=== PATIENT | female | born 1930 | race American Indian/Alaskan Native ===

== ENCOUNTER 2018-12-25 03:00 | Inpatient (IN) | payer MEDICARE ==
[2018-12-25 08:37] LABS: BUN/Creatinine Ratio 11; Blood Urea Nitrogen 9 mg/dL (7-17); Calcium 8.8 mg/dL (8.4-10.2); Hemolysis Index 28; LDL Cholesterol,Direct 68 mg/dL (50-130)
[2018-12-25 09:09] LABS: Chol/HDL Ratio 3.36 %; HDL Cholesterol 33 mg/dL (40-59)
[2018-12-25] MEDS: LASIX PO SCH (09:49)
[2018-12-25] MEDS: COLACE PO SCH ×2 (09:49→21:05)
[2018-12-25] MEDS: CLARITIN PO SCH (09:49)
[2018-12-25] MEDS: LEXAPRO PO SCH (10:04)
--- NOTE | 2018-12-25 11:40 | History and Physical Report ---
GP History & Physical - History of Present Illness Date of admission: 12/25/18 Date of Examination: 12/25/18 Reason for Admission: Danger to others, Impaired reality testing, Psychopathology interference, Unable to care for self Chief Complaint: I don't know why I am here History of Present Illness: The patient is an 88-year-old female with past medical history significant for Dementia, HLD, HTN, recurrent falls with multiple fractures including thoracic vertebra wedge compression fracture and most recently a right bi-condylar fracture of the right Tibia and right humerus. She is a Resident at the [facility] from where she was transferred to the [facility] due to her aggressive behaviors, paranoia, hallucinations and refusing care. Patient seen in the dayroom this morning. She is alert, calm and pleasant. She does not know why she is here. She reports that her mood is good, appetite and sleep are poor. She denies suicidal or homicidal thoughts. She endorses auditory hallucinations. She is paranoid - she believes that her nieces are plotting to kill her. She scored 23/28 in MMSE; her right hand is in cast, hence , she is not able to write or draw. She missed all orientation questions. Legal Status: Involuntary Patient Problems: Current Active Problems Alzheimer's dementia, late onset, with behavioral disturbance (Acute) Delirium due to medical condition with behavioral disturbance (Acute) Reaction to Hospitalization: Opposed Substance History - Substance History Drug Use: none Hx Tobacco Use: No Alcohol Use: No Past psychiatric history - Past Medical History Past Medical History: hypertension, hyperlipidemia, other (Recurrent Falls) Past Surgical History: Other (thoracic vertebra wedge compression fracture right bicondylar fracture of the right Tibia and right humerus ) - Social History Social history: , other (Retired, Lives in a Residential.) Review of Systems All systems: negative Constitutional: poor appetite Musculoskeletal: frequent falls, fractures Psychiatric: memory loss, insomnia, hallucinations, paranoia Results - Results Labs/Vitals: Laboratory Last Values Sodium 137 mmol/L (137-145) 12/25/18 07:38 Potassium 3.5 mmol/L (3.6-5.0) L 12/25/18 07:38 Chloride 97.5 mmol/L (98-107) L 12/25/18 07:38 Carbon Dioxide 27 mmol/L (22-30) 12/25/18 07:38 16 mmol/L 12/25/18 07:38 BUN 9 mg/dL (7-17) 12/25/18 07:38 0.8 mg/dL (0.7-1.2) 12/25/18 07:38 Estimated GFR > 60 ml/min 12/25/18 07:38 11 % 12/25/18 07:38 Glucose 92 mg/dL (65-100) 12/25/18 07:38 6.1 % (4-6) H 12/25/18 07:38 Calcium 8.8 mg/dL (8.4-10.2) 12/25/18 07:38 Triglycerides 97 mg/dL (2-149) 12/25/18 07:38 Cholesterol 111 mg/dL (50-199) 12/25/18 07:38 68 mg/dL (50-130) 12/25/18 07:38 33 mg/dL (40-59) L 12/25/18 07:38 3.36 % 12/25/18 07:38 TSH 0.924 mlU/mL (0.270-4.200) 12/25/18 07:38 RPR Nonreactive (Nonreactive) 12/25/18 07:38 Last Vital Signs Temp 98.3 F 12/25/18 06:19 Pulse 79 12/25/18 06:19 Resp 18 12/25/18 06:19 BP 124/69 12/25/18 06:19 Pulse Ox 93 12/25/18 06:19 Physical Examination - Constitutional Vitals: Vital Signs Temp Pulse Resp BP Pulse Ox 98.3 F 79 18 124/69 93 12/25/18 06:19 12/25/18 06:19 12/25/18 06:19 12/25/18 06:19 12/25/18 06:19 Temperature -Last 24 Hours Temperature 98.3 F General appearance: Present: no acute distress, well-nourished - EENT Eyes: Present: PERRL, EOM intact ENT: hearing intact, clear oral mucosa - Neck Neck: Present: supple, normal ROM - Respiratory Respiratory effort: normal - Psychiatric Psychiatric: appropriate mood/affect, cooperative Mental Status Exam - Vital signs Last Vital Signs Temp 98.3 F 12/25/18 06:19 Pulse 79 12/25/18 06:19 Resp 18 12/25/18 06:19 BP 124/69 12/25/18 06:19 Pulse Ox 93 12/25/18 06:19 - Exam Orientation: person Affect: normal Mood: appropriate, calm, congruent with affect Thought content: delusions, paranoia Thought Process: Disorganized Perceptions: auditory, hallucinations Speech: normal rate and pattern Concentration: distractible Motor activity: normal Level of consciousness: alert Memory: Recent Impaired, Remote Impaired Sleep Symptoms: Insomnia Appetite: decreased Interaction: uncooperative Mini mental status exam(if necessary): 18- Assessment and Plan - Psychiatric problem (1) Alzheimer's dementia, late onset, with behavioral disturbance Current Visit: Yes Status: Acute (2) Delirium due to medical condition with behavioral disturbance Current Visit: Yes Status: Acute Physician Certification - Certification Statement Physician Certification Statement: This is an acknowledgement statement that GENARO GUERRERO is a 88 year old F who requires inpatient psychiatric admission for treatment which could reasonably be expected to improve the patient's condition for behavioral disturbance Estimated period of time patient will need to remain in the hospital: 6 days Plan for post-hospital care: Out-patient care Plan Patient will be admitted for inpatient psychiatric evaluation, medication adjustment and close monitoring The patient's behavior, mood, sleep and appetite will be closely monitored. Patient will be enrolled in individual and group therapeutic sessions and encouraged to attend. Patient will be provided with a safe and structured environment. Patient's physical health needs will be addressed by the Hospitalist. Social Assessment will be completed and the Ore Bridge Operator will work with patient and family to ensure a suitable and safe disposition Medication adjustment will be made as clinically indicated. Seroquel discontinued as it is sedating and increases Fall Risk. Risperidone 0.5mg bid started for delirium and psychosis Melatonin 5mg qhs for sleep/wake cycle regulation. The patient agreed on the treatment plan, understood the risk, benefit, alternative treatment, potential consequence of no treatment, and gave informed consent.
--- NOTE | 2018-12-25 12:50 | Consultation ---
History of Present Illness - Reason for Consult Consult date: 12/25/18 Hypokalemia Requesting physician: CURTIS PAEZ - History of Present Illness Patient is on 88-year-old female with past medical history significant for hyperlipidemia, multiple fractures including thoracic vertebra wedge compression fracture and most recently a right bicondylar fracture of the right Tibia and right humerus with recurrent falls, hypertension, who is admitted currently in the behavioral medical unit for optimization due to worsening mood and behavior disorder with delirium and delusions refusing treatment. Patient today denies any complaints at this time denies any nausea vomiting or diarrhea. Reports that she has better movement of her right upper extremity and right lower extremity boots which has a cast in place. Denies any fever. No other complaint reported by nursing staff. Further review of documentation revealed the patient still has hallucinations and sometimes convalescent with people that are not present and laughing. Also has been noted to have poor appetite. Past History Past Medical History: hypertension, hyperlipidemia, other (psychosis) Past Surgical History: No surgical history Social history: other ([facility]) Family history: no significant family history Medications and Allergies Allergies Allergy/AdvReac Type Severity Reaction Status Date / Time No Known Allergies Allergy Verified 12/25/18 03:00 Home Medications Medication Instructions Recorded Confirmed Last Taken Type levoFLOXacin [Levaquin TAB] 500 mg PO QDAY #10 tablet 12/25/18 12/25/18 12/25/18 Rx 500 mg Active Meds: Active Medications Docusate Sodium (Colace) 100 mg PO BID [facility] Last Admin: 12/25/18 09:49 Dose: 100 mg Documented by: Escitalopram Oxalate (Lexapro) 10 mg PO QDAY [facility] Last Admin: 12/25/18 10:04 Dose: 10 mg Documented by: Furosemide (Lasix) 20 mg PO QDAY [facility] Last Admin: 12/25/18 09:49 Dose: 20 mg Documented by: Levofloxacin (Levaquin) 500 mg PO QDAY [facility] Loratadine (Claritin) 10 mg PO QDAY [facility] Last Admin: 12/25/18 09:49 Dose: 10 mg Documented by: Melatonin (Melatonin) 5 mg PO QHS [facility] Potassium Chloride (K-Dur) 40 meq PO ONCE ONE Stop: 12/25/18 12:50 Pravastatin Sodium (Pravachol) 80 mg PO QHS [facility] Risperidone (Risperdal) 0.5 mg PO BID CECILIA Review of Systems All systems: negative Constitutional: no weight loss, no weight gain, no anorexia, no fatigue, no weakness Cardiovascular: no orthopnea, no palpitations, no rapid/irregular heart beat, no syncope, no lightheadedness, no shortness of breath Respiratory: no cough with sputum, no excessive sputum, no shortness of breath, no wheezing, no pain Gastrointestinal: no nausea, no diarrhea, no change in bowel habits Musculoskeletal: fractures, no neck pain, no shooting arm pain, no low back pain, no leg numbness/tingling, no redness of joints, no morning stiffness, no muscle cramps, no atrophy Integumentary: no pruritis, no sores, no boils, no lesions, no darkening of skin, no color changes, no striae, no hirsutism Neurological: no numbness, no syncope, no tremors, no headaches, no convulsions, no change in mentation, no sensory deficit, no burning pain Psychiatric: depression, confusion Endocrine: no heat intolerance, no polydipsia, no excessive sweating, no thyroid mass, no high blood sugars Hematologic/Lymphatic: no easy bruising Exam - Physical Exam Narrative exam: VITAL SIGNS: Reviewed. GENERAL: The patient appeared well nourished and normally developed, Vital signs as documented. HEAD: No signs of head trauma. EYES: Pupils are equal. Extraocular motions intact. EARS: Hearing grossly intact. MOUTH: Oropharynx is normal. NECK: No adenopathy, no JVD. Mildly tender on the right side. CHEST: Chest with clear breath sounds bilaterally. No wheezes, rales, or rhonchi. CARDIAC: Regular rate and rhythm. S1 and S2, without murmurs, gallops, or rubs. VASCULAR: No Edema. Peripheral pulses normal and equal in all extremities. ABDOMEN: Soft, non tender and non distended. No rebound or guarding, and no masses palpated. Bowel Sounds normal. MUSCULOSKELETAL: Good range of motion of all major joints. Except noted right upper and lower extremity with cast present. Able to wiggle fingers. Extremities without clubbing, cyanosis or edema. NEUROLOGIC EXAM: Alert and oriented x 3 No focal sensory or strength deficits. Speech normal. Follows commands. PSYCHIATRIC: Mood normal. SKIN: No rash or lesions. - Constitutional Vitals: Temp Pulse Resp BP Pulse Ox 98.3 F 79 18 124/69 93 12/25/18 06:19 12/25/18 06:19 12/25/18 06:19 12/25/18 06:19 12/25/18 06:19 Results - Labs CBC & Chem 7: 12/25/18 07:38 Labs: Abnormal lab results 12/25/18 12/25/18 Range/Units 07:38 07:38 Potassium 3.5 L (3.6-5.0) mmol/L Chloride 97.5 L (98-107) mmol/L Hemoglobin A1c 6.1 H (4-6) % HDL Cholesterol 33 L (40-59) mg/dL Assessment and Plan Patient is on 88-year-old female with past medical history significant for hyperlipidemia, multiple fractures including thoracic vertebra wedge compression fracture and most recently a right bicondylar fracture of the right Tibia and right humerus with recurrent falls, hypertension, who is admitted currently in the behavioral medical unit for optimization due to worsening mood and behavior disorder with delirium and delusions refusing treatment. Patient today denies any complaints at this time denies any nausea vomiting or diarrhea. Reports that she has better movement of her right upper extremity and right lower extremity boots which has a cast in place. Denies any fever. No other complaint reported by nursing staff. Further review of documentation revealed the patient still has hallucinations and sometimes convalescent with people that are not present and laughing. Also has been noted to have poor appetite. Hypertension HyperLipidemia Hypokalemia poor Po intake psychosis plan Continue current home medications Replace K and monitor intermittently update home meds for reconciliation Po intake is likely related to her psychiatric hx and should resolve once her mood is improved. if continues worsening will obtain Bird Keeper consult and possible initiate an appetite stimulant. Thank you for allowing us take part in the care of the patient as new information become available more therapeutic or diagnostic measures many to be implemented
[2018-12-25] MEDS ORDERED: RisperDAL PO SCH (13:00)
[2018-12-25] MEDS ORDERED: K-DUR PO ONE (13:30)
[2018-12-25] MEDS ORDERED: RisperDAL ONE ×2 (14:21→14:33)
[2018-12-25] MEDS: LEVAQUIN PO SCH (14:26)
[2018-12-25] MEDS: PRAVACHOL PO SCH (21:05)
[2018-12-25] MEDS: MELATONIN PO SCH (21:06)
[2018-12-25] MEDS: RisperDAL PO SCH (21:06)
[2018-12-25] MEDS ORDERED: ARICEPT PO SCH (22:00)
[2018-12-25] MEDS ORDERED: LOVENOX SUB-Q SCH (22:00)
[2018-12-26] MEDS: COLACE PO SCH ×2 (09:25→21:55)
[2018-12-26] MEDS: LASIX PO SCH (09:25)
[2018-12-26] MEDS: CLARITIN PO SCH (09:25)
[2018-12-26] MEDS: LEXAPRO PO SCH (09:25)
[2018-12-26] MEDS: LEVAQUIN PO SCH (09:25)
[2018-12-26] MEDS: RisperDAL PO SCH ×2 (09:27→21:54)
--- NOTE | 2018-12-26 12:33 | Progress Note ---
Subjective Date of service: 12/26/18 Principal diagnosis: Dementia with behavioral disturbance Subjective Comment: Patient is calm and pleasant. She continues to be suspicious and paranoid. She denies SI/HI. Nursing Staff reports that patient was resitive to cares. She slept well last night. Her dietary intake is adequate. She feeds herself. She is compliant with meds with no reported or observed side effects. No aggressive behaviors reported. We do not know how long she has had the cast on her right upper extremity and the brace on the right lower extremity. Will request Ortho consult to advise what to do regarding the cast brace Objective - Criteria for Continued Treatment Criteria for Continued Treatment: Improving Level of Functioning, Reducing Isolative Behaviors, Understanding Diagnosis and need for Medication, Improving Treatment / Medication Compliance, Stablizing Level of Functioning, Improving Emotional/Socia - Mental Status Mental Status: Oriented x 1 Person only - Objective Observation Participation Level: Moderate Assessment and Plan - Patient Problems (1) Alzheimer's dementia, late onset, with behavioral disturbance Current Visit: Yes Status: Acute (2) Delirium due to medical condition with behavioral disturbance Current Visit: Yes Status: Acute Plan to address problem: Continue inpatient psychiatric treatment for medication adjustment and close monitoring The patient's behavior, mood, sleep and appetite will be closely monitored. Patient will be enrolled in individual and group therapeutic sessions and encouraged to attend. Patient will be provided with a safe and structured environment. Patient's physical health needs will be addressed by the Hospitalist. Social Assessment will be completed and the Decorator Store will work with patient and family to ensure a suitable and safe disposition Medication adjustment will be made as clinically indicated. Seroquel was discontinued as it is sedating and increases Fall Risk. Will increase Risperidone to 0.75mg bid for delirium and psychosis Continue Melatonin 5mg qhs for sleep/wake cycle regulation. The patient agreed on the treatment plan, understood the risk, benefit, alternative treatment, potential consequence of no treatment, and gave informed consent.
[2018-12-26] MEDS ORDERED: IBUPROFEN PO ONE (14:40)
[2018-12-26 16:07] LABS: Basophils % (Auto) 0.7 % (0.0-1.8); Eosinophils # (Auto) 0.3 K/mm3 (0.0-0.4); Eosinophils % (Auto) 5.1 % (0.0-4.3); Hematocrit 35.2 % (30.3-42.9); Hemoglobin 11.7 gm/dl (10.1-14.3); Lymphocytes % (Auto) 18.7 % (13.4-35.0); Mean Corpuscular HGB Conc 33 % (30-34); Mean Corpuscular Volume 83 fl (79-97); Monocytes # (Auto) 0.4 K/mm3 (0.0-0.8); Monocytes % (Auto) 8.2 % (0.0-7.3); Platelet Count 340 K/mm3 (140-440); Red Blood Count 4.25 M/mm3 (3.65-5.03); Red Cell Distribution Width 15.3 % (13.2-15.2)
[2018-12-26 16:23] LABS: Alanine Aminotransferase 5 units/L (7-56); Albumin 3.2 g/dL (3.9-5); BUN/Creatinine Ratio 11; Blood Urea Nitrogen 10 mg/dL (7-17); Calcium 9.3 mg/dL (8.4-10.2); Hemolysis Index 8
[2018-12-26] MEDS: PRAVACHOL PO SCH (21:55)
[2018-12-26] MEDS: MELATONIN PO SCH (21:55)
[2018-12-27] MEDS: LEXAPRO PO SCH (10:19)
[2018-12-27] MEDS: LEVAQUIN PO SCH (10:19)
[2018-12-27] MEDS: RisperDAL PO SCH ×2 (10:19→21:02)
[2018-12-27] MEDS: COLACE PO SCH ×2 (10:19→21:03)
[2018-12-27] MEDS: CLARITIN PO SCH (10:20)
[2018-12-27] MEDS: LASIX PO SCH (10:20)
--- NOTE | 2018-12-27 14:40 | Progress Note ---
Subjective Date of service: 12/27/18 Principal diagnosis: Dementia with behavioral disturbance Subjective Comment: Patient is calm and pleasant. She has memory difficulties for dementia but her mood is good. She is calm and pleasant She denies SI/HI. She slept well last night. Her dietary intake is adequate. She feeds herself. She is compliant with meds with no reported or observed side effects. No aggressive behaviors reported. Objective - Criteria for Continued Treatment Criteria for Continued Treatment: Improving Level of Functioning, Stablizing Level of Functioning, Improving Emotional/Socia - Mental Status Mental Status: Oriented x 1 Person only - Objective Observation Participation Level: Moderate Assessment and Plan - Patient Problems (1) Alzheimer's dementia, late onset, with behavioral disturbance Current Visit: Yes Status: Acute (2) Delirium due to medical condition with behavioral disturbance Current Visit: Yes Status: Acute Plan to address problem: Continue inpatient psychiatric treatment for medication adjustment and close monitoring The patient's behavior, mood, sleep and appetite will be closely monitored. Patient will be enrolled in individual and group therapeutic sessions and encouraged to attend. Patient will be provided with a safe and structured environment. Patient's physical health needs will be addressed by the Hospitalist. Social Assessment will be completed and the Golf Tournament Consultant will work with patient and family to ensure a suitable and safe disposition Medication adjustment will be made as clinically indicated. Seroquel was discontinued as it is sedating and increases Fall Risk. Will continue Risperidone 0.75mg bid for delirium and psychosis Continue Melatonin 5mg qhs for sleep/wake cycle regulation. Plan to discharge in am tomorrow if she continues to do well.
[2018-12-27 20:38] VITALS: BP 130/66
[2018-12-27] MEDS: PRAVACHOL PO SCH (21:01)
[2018-12-27] MEDS: MELATONIN PO SCH (21:01)
--- NOTE | 2018-12-28 06:25 | Discharge Summary ---
Providers - Providers Date of Admission: 12/25/18 03:00 Date of discharge: 12/28/18 Attending physician: CURTIS PAEZ MD Primary care physician: HEVAEN CLARK Hospitalization Reason for admission: Aggressive behaviors, paranoia, hallucinations and refusing cares Admitting Diagnosis: F05 - DELIRIUM DUE TO KNOWN PHYSIOLOGICAL CONDITION Condition: Good Hospital course: The patient was provided inpatient psychiatric treatment with safe and supportive environment, group therapy, individual counseling, psychiatric medication, medication adjustment, adverse effect monitor, medical evaluation, medical treatment, social service assessment, family/social support meeting, placement assessment and psycho-education. The patients mood, anxiety, thoughts, stress management skill, cognition, impulse/anger control, motivation, understanding of disease, compliance to treatment and appreciation on family/social support are improved and stabilized. At the time of discharge, the patient had no suicidal ideas, no homicidal ideas, no aggressive thoughts, no endangering behavior and no debilitating adverse effects. The patient agreed on the treatment plan, understood the risk, benefit, alternative treatment, potential consequence of no treatment, and gave informed consent. The patient was advised to be compliant with medications, not to use drugs and not to drink alcohol. The patient understands that if suicidal ideas, homicidal ideas, or any endangering thoughts arise, the patient should immediately seek for emergent assistance including but not limited to crisis hot line and emergency room. Follow up with out-patient Psychiatrist and PCP within 14 - 21 days of discharge. Disposition: [id number] [facility] CERT Allergies/Adverse Reactions: Allergies No Known Allergies Allergy (Verified 12/25/18 03:00) Vital Signs: Last Vital Signs Temp 98.4 F 12/27/18 19:49 Pulse 82 12/27/18 19:49 Resp 18 12/27/18 19:49 BP 130/66 12/27/18 19:49 Pulse Ox 95 12/27/18 19:49 Last Lab: Laboratory Last Values WBC 5.3 K/mm3 (4.5-11.0) 12/26/18 15:34 RBC 4.25 M/mm3 (3.65-5.03) 12/26/18 15:34 Hgb 11.7 gm/dl (10.1-14.3) 12/26/18 15:34 Hct 35.2 % (30.3-42.9) 12/26/18 15:34 MCV 83 fl (79-97) 12/26/18 15:34 MCH 28 pg (28-32) 12/26/18 15:34 MCHC 33 % (30-34) 12/26/18 15:34 RDW 15.3 % (13.2-15.2) H 12/26/18 15:34 Plt Count 340 K/mm3 (140-440) 12/26/18 15:34 Lymph % (Auto) 18.7 % (13.4-35.0) 12/26/18 15:34 [place] % (Auto) 8.2 % (0.0-7.3) H 12/26/18 15:34 Eos % (Auto) 5.1 % (0.0-4.3) H 12/26/18 15:34 Baso % (Auto) 0.7 % (0.0-1.8) 12/26/18 15:34 Lymph # 1.0 K/mm3 (1.2-5.4) L 12/26/18 15:34 [place] # 0.4 K/mm3 (0.0-0.8) 12/26/18 15:34 Eos # 0.3 K/mm3 (0.0-0.4) 12/26/18 15:34 Baso # 0.0 K/mm3 (0.0-0.1) 12/26/18 15:34 Seg Neutrophils % 67.3 % (40.0-70.0) 12/26/18 15:34 Seg Neutrophils # 3.6 K/mm3 (1.8-7.7) 12/26/18 15:34 Sodium 138 mmol/L (137-145) 12/26/18 15:34 Potassium 3.7 mmol/L (3.6-5.0) 12/26/18 15:34 Chloride 99.7 mmol/L (98-107) 12/26/18 15:34 Carbon Dioxide 26 mmol/L (22-30) 12/26/18 15:34 16 mmol/L 12/26/18 15:34 BUN 10 mg/dL (7-17) 12/26/18 15:34 0.9 mg/dL (0.7-1.2) 12/26/18 15:34 Estimated GFR > 60 ml/min 12/26/18 15:34 11 % 12/26/18 15:34 Glucose 118 mg/dL (65-100) H 12/26/18 15:34 6.1 % (4-6) H 12/25/18 07:38 Calcium 9.3 mg/dL (8.4-10.2) 12/26/18 15:34 0.30 mg/dL (0.1-1.2) 12/26/18 15:34 AST 15 units/L (5-40) 12/26/18 15:34 ALT 5 units/L (7-56) L 12/26/18 15:34 104 units/L (35-129) 12/26/18 15:34 7.3 g/dL (6.3-8.2) 12/26/18 15:34 3.2 g/dL (3.9-5) L 12/26/18 15:34 0.8 % 12/26/18 15:34 Triglycerides 97 mg/dL (2-149) 12/25/18 07:38 Cholesterol 111 mg/dL (50-199) 12/25/18 07:38 68 mg/dL (50-130) 12/25/18 07:38 33 mg/dL (40-59) L 12/25/18 07:38 3.36 % 12/25/18 07:38 TSH 0.924 mlU/mL (0.270-4.200) 12/25/18 07:38 RPR Nonreactive (Nonreactive) 12/25/18 07:38 - Discharge Diagnoses (1) Alzheimer's dementia, late onset, with behavioral disturbance Status: Acute (2) Delirium due to medical condition with behavioral disturbance Status: Acute Core Measure Documentation - Palliative Care Palliative Care/ Comfort Measures: Not Applicable - Core Measures Any of the following diagnoses?: history only - VTE Discharge Requirements Deep Vein Thrombosis/Pulmonary Embolism Present on Admission: No Has pt received <5 days of overlap therapy or INR<2.0: No Anticoagulant overlap therapy prescribed at discharge: No Contraindication No Overlap Therapy order at DC: Not Indicated Exam - Constitutional Vitals: Temp Pulse Resp BP Pulse Ox 98.4 F 82 18 130/66 95 12/27/18 19:49 12/27/18 19:49 12/27/18 19:49 12/27/18 19:49 12/27/18 19:49 General appearance: Present: no acute distress - EENT Eyes: Present: PERRL, EOM intact ENT: hearing intact, clear oral mucosa - Neck Neck: Present: supple, normal ROM - Respiratory Respiratory effort: normal Plan Activity: fall precautions Weight Bearing Status: Non-Weight Bearing Diet: regular Follow up with: HEAVEN CLARK MD [Primary Care Provider] - 7 Days Prescriptions: Melatonin [Melatonin 5MG TAB] 5 mg PO QHS #30 tablet Pravastatin [Pravachol] 80 mg PO QHS #30 tablet Loratadine [Claritin] 10 mg PO QDAY #30 tablet Docusate Sodium [Colace CAP] 100 mg PO BID PRN #60 capsule PRN Reason: Constipation Furosemide [Lasix TAB] 20 mg PO QDAY #30 tablet levoFLOXacin [Levaquin TAB] 500 mg PO QDAY #7 tablet Escitalopram [Lexapro] 10 mg PO QDAY #30 tablet risperiDONE [RisperDAL] 0.75 mg PO BID #60 tablet
[2018-12-28] MEDS: LEVAQUIN PO SCH (09:30)
[2018-12-28] MEDS: RisperDAL PO SCH (09:30)
[2018-12-28] MEDS: CLARITIN PO SCH (09:30)
[2018-12-28] MEDS: LASIX PO SCH (09:30)
[2018-12-28] MEDS: COLACE PO SCH (09:30)
[2018-12-28] MEDS: LEXAPRO PO SCH (09:30)
== END 2018-12-28 14:15 | DRG 57 ==
LOC: 5A 03:00
PROVIDERS: ADMIT Psychiatry & Neurology Psychiatry; ATTEND Psychiatry & Neurology Psychiatry
DX: G30.1 Alzheimer's disease with late onset (principal); F02.81 Dementia in other diseases classified elsewhere, unspecified severity, with behavioral disturbance; F05 Delirium due to known physiological condition; I10 Essential (primary) hypertension; E78.5 Hyperlipidemia, unspecified; E87.6 Hypokalemia
CPT/HCPCS: 36415; 80048; 80053; 80061; 83036; 84443; 85025; 86592; G0378; A9270-GY